=== PATIENT | female | born 1985 | race Caucasian/White ===

== ENCOUNTER 2019-05-18 10:40 | Emergency (ER) | payer MEDICAID, OTHER ==
[~2019-05-18] VITALS: Ht 165.1 cm; Wt 75.3 kg
[~2019-05-18 10:40] MED LIST: no meds
[2019-05-18 10:50] VITALS: BP 125/81
--- NOTE | 2019-05-18 11:15 | NUR ---
Patient discharged to home in stable condition. Written and verbal after care instructions given. Patient verbalizes understanding of instruction.
== END 2019-05-18 11:20 | disposition home or self-care (01) ==
LOC: EDBD 10:40 → ER 10:40
DX: H00.016 Hordeolum externum left eye, unspecified eyelid (principal); Z98.890 Other specified postprocedural states